=== PATIENT | male | born 1985 ===

== ENCOUNTER 2022-09-18 15:05 | Emergency (ER) | payer SELFPAY ==
[2022-09-18 15:13] VITALS: BP 148/91; PULSE 82; RESP 18; TEMP 36.8; O2SAT 98; BMI 38.0
--- NOTE | 2022-09-18 15:13 | ED.PSYCH ---
HPI - Psych General Chief Complaint: Anxiety <Leonor Marte CNP - Last Filed: 09/18/22 15:16> Stated Complaint: Anxiety <Leonor Marte CNP - Last Filed: 09/18/22 15:16> Time Seen by Provider: 09/18/22 15:56 <Leonor Marte CNP - Last Filed: 09/18/22 15:16> Source: patient <Rema Watts NP - Last Filed: 09/18/22 19:21> Mode of arrival: ambulatory <Rema Watts NP - Last Filed: 09/18/22 19:21> Limitations: no limitations <Rema Watts NP - Last Filed: 09/18/22 19:21> History of Present Illness HPI Narrative: 37-year-old male presents for anxiety, he denies suicidal homicidal ideation. He recently from his significant other, on Monday, states that he has been unable to eat, trouble sleeping, and has some intermittent chest discomfort because of the stress. He is able to function, has been going to work, and has not been participating in any illicit drugs. He does drink responsibly. He is seeking assistance, possibly outpatient therapy. <Rema Watts NP - Last Filed: 09/18/22 19:21> MD complaint: anxiety <Rema Watts NP - Last Filed: 09/18/22 19:21> Onset (ago): week(s) <Rema Watts NP - Last Filed: 09/18/22 19:21> Duration: getting worse <Rema Watts NP - Last Filed: 09/18/22 19:21> History of same: No <Rema Watts NP - Last Filed: 09/18/22 19:21> Relieving factors: none <Rema Watts NP - Last Filed: 09/18/22 19:21> Exacerbating factors: other (Separation) <Rema Watts NP - Last Filed: 09/18/22 19:21> Context: significant life stressor <Rema Watts NP - Last Filed: 09/18/22 19:21> Associated symptoms: denies other symptoms <Rema Watts NP - Last Filed: 09/18/22 19:21> Treatments prior to arrival: none <Rema Watts NP - Last Filed: 09/18/22 19:21> Related Data Home Medications: Previous Rx's Medication Instructions Recorded hydroxyzine HCl 25 mg tablet 25 mg PO Q6-8H PRN anxiety #30 tabs 09/18/22 <Leonor Marte CNP - Last Filed: 09/18/22 15:16> Allergies/Adverse Reactions: Allergies Allergy/AdvReac Type Severity Reaction Status Date / Time No Known Allergies Allergy Unverified 05/07/20 16:16 <Leonor Marte CNP - Last Filed: 09/18/22 15:16> Review of Systems Review of Systems: Constitutional: No Fever, No Chills Cardiovascular: Positive chest pressure, No SOB Respiratory: No Cough, No Dyspnea Gastrointestinal: No Nausea, No Vomiting, No Diarrhea, No abdominal Pain Genitourinary: No Dysuria, No Hematuria Musculoskeletal: No joint pain, No Myalgias, No Joint Swelling Psych: Positive Anxiety/Panic, No Depression <Rema Watts NP - Last Filed: 09/18/22 19:21> Yes all other systems are reviewed and are negative <Rema Watts NP - Last Filed: 09/18/22 19:21> PMFSH Past Medical History Attestation statement: The following information was validated with the patient. <Rema Watts NP - Last Filed: 09/18/22 19:21> Source: old records reviewed <Rema Watts NP - Last Filed: 09/18/22 19:21> Social History Social History: Social History Smoked in Last 30 Days: No Use of substances other than those prescribed or required for medical reasons: No Advance Directives: No Advance Directives Information Provided: No <Leonor Marte CNP - Last Filed: 09/18/22 15:16> Physical Exam Vital Signs: Vital Signs: Last Vital Signs Temp 98.2 F 09/18/22 15:13 Pulse 82 09/18/22 15:13 Resp 18 09/18/22 15:13 BP 148/91 H 09/18/22 15:13 Pulse Ox 98 09/18/22 15:13 O2 Del Method 09/18/22 15:13 BMI result Body Mass Index 38.0 <Leonor Marte CNP - Last Filed: 09/18/22 15:16> Vital Signs: Last Vital Signs Temp 98.2 F 09/18/22 15:13 Pulse 82 09/18/22 15:13 Resp 18 09/18/22 15:13 BP 148/91 H 09/18/22 15:13 Pulse Ox 98 09/18/22 15:13 O2 Del Method 09/18/22 15:13 BMI result Body Mass Index 38.0 <Rema Watts NP - Last Filed: 09/18/22 19:21> Appearance: Alert. Oriented X3. No acute distress. Eyes: Pupils equal, round and reactive to light. Neck: Normal inspection. Neck supple. CVS: Normal heart rate and rhythm. Pulses normal. Respiratory: No respiratory distress. Breath sounds normal. Skin: Skin warm and dry. Normal skin color. Normal skin turgor. Extremities: Gait well-balanced well coordinated. Neuro: No motor deficit. No sensory deficit. Cranial nerves 2-12 intact. <Rema Watts NP - Last Filed: 09/18/22 19:21> Course Course Course Narrative: This is an RME: Additional HPI, ROS, PE not included below will be deferred to primary provider. Marly a 37 year old male presenting ot the ED complainig of worsening Depression and anxiety over the past week, has had history of prior. Had a therapist in the past, none for about 5-6 years. Denies any SI/HI. Denies any prior SI attempts. Has not spoke to PCP about this. reports he as been trying to break out if it but can't, requesting assistance with getting a therapist. Marly placed back in waiting room with mother and father. Will require referral to CARE team <Leonor Marte CNP - Last Filed: 09/18/22 15:16> This is an RME: Additional HPI, ROS, PE not included below will be deferred to primary provider. Marly a 37 year old male presenting ot the ED complainig of worsening Depression and anxiety over the past week, has had history of prior. Had a therapist in the past, none for about 5-6 years. Denies any SI/HI. Denies any prior SI attempts. Has not spoke to PCP about this. reports he as been trying to break out if it but can't, requesting assistance with getting a therapist. Marly placed back in waiting room with mother and father. Will require referral to CARE team 37-year-old male presents for situational anxiety, recently went through a separation and is experiencing, sleeplessness, and poor p.o. intake. Patient is able to function, is able to go to work. He does not report excessive alcohol or marijuana use. Patient is speaking in complete sentences, appears well, 18 afebrile, nontoxic, vital signs are within normal limits. Considering the patient's concerned about some chest pressure with his anxiety, will order EKG, I do not feel that labs are appropriate at this time, if EKG indicates ski Barbara will continue with the ACS workup. This is most likely anxiety due to significant life stressor. I did contact the care team, plan is for care team consult. Patient denies suicidal and homicidal ideation. At this time patient is voluntary. 18:00 care team presented patient with referrals outpatient therapy. Patient verbalized understanding of and agrees to plan of care discharge home. Verbalized understanding of signs and symptoms indicating need for emergent intervention. <Rema Watts NP - Last Filed: 09/18/22 19:21> Medical Decision Making Differential Diagnosis Differential Diagnoses: The differential diagnosis associated with the presentation includes <Rema Watts NP - Last Filed: 09/18/22 19:21> Anxiety, depression <Rema Watts NP - Last Filed: 09/18/22 19:21> Consult Healthcare Provider Management of the patient was discussed with: Behavioral Health Provider <Rema Watts NP - Last Filed: 09/18/22 19:21> Independent Interpretation I performed an independent interpretation of an: EKG <Rema Watts NP - Last Filed: 09/18/22 19:21> External Record Review No prior records for this patient at this facility <Rema Watts NP - Last Filed: 09/18/22 19:21> Prescription Management I considered prescription management with: Other (anxiolytic ) <Rema Watts NP - Last Filed: 09/18/22 19:21> Discharge Plan Discharge Clinical Impression: Acute anxiety <Leonor Marte CNP - Last Filed: 09/18/22 15:16> Patient Disposition: Home, Self-Care <Leonor Marte CNP - Last Filed: 09/18/22 15:16> Instructions: Anxiety (ED) <Leonor Marte CNP - Last Filed: 09/18/22 15:16> Additional Instructions: Please follow-up with outpatient referrals. Please take hydroxyzine 25 to 50 mg every 6-8 hours as needed. Please start with 25 mg, if 25 mg does not work then repeat in 1 hour. Thank you for choosing this emergency department for evaluation. Please follow-up with primary care physician as needed. Return to the emergency department for any new, concerning, or worsening symptoms. <Leonor Marte CNP - Last Filed: 09/18/22 15:16> Prescriptions: New hydroxyzine HCl 25 mg tablet 25 mg PO Q6-8H PRN (Reason: anxiety) Qty: 30 0RF <Leonor Marte CNP - Last Filed: 09/18/22 15:16> Interventions: ED Discharge Assessment Last Done: 09/18/22 18:39 <Leonor Marte CNP - Last Filed: 09/18/22 15:16> Discharge Date/Time: 09/18/22 18:42 <Leonor Marte CNP - Last Filed: 09/18/22 15:16>
--- NOTE | 2022-09-18 15:58 | PC.NURSE ---
37 y/o M pw anxiety/depression x1 week, has no hx of this. pt was seen by counselor 2 days ago. denies SI/HI. states he has a strong support system at home. no other complaints, VSS, awaiting provider
--- NOTE | 2022-09-18 16:12 | ECG_ITS ---
Test Reason : general medical Blood Pressure : / mmHG Vent. Rate : 067 BPM Atrial Rate : 067 BPM P-R Int : 146 ms QRS Dur : 092 ms QT Int : 382 ms P-R-T Axes : 052 052 050 degrees QTc Int : 403 ms Normal sinus rhythm with sinus arrhythmia Normal ECG No previous ECGs available Referred By: Rema Watts Electronically Signed By:Moshe Merritt
--- NOTE | 2022-09-18 18:01 | MHC.CARE ---
CARE team met with pt to discuss plan of care once pt was medically cleared. [place] [facility] [place] of [place]. He reports feelings of depression and disturbed sleep. He broke up with his girlfriend on Monday and has had a difficult time adjusting. Pt is currently working FT. He has been using exercise as a coping skill but feels he needs additional supports at this time. He denies any SI/HI. He has no prior hx of hospitalization. Pt?s mother in room at the time of interview and reports no safety concerns. Pt was given written material for outpatient providers. Pt stated he will follow up with providers tomorrow. He was previously attending [facility] and found OP therapy helpful
== END 2022-09-18 18:42 | disposition home or self-care (01) ==
PROVIDERS: Emergency Provider Emergency Medicine
DX: F41.1 Generalized anxiety disorder (principal); Z63.79 Other stressful life events affecting family and household; Z79.899 Other long term (current) drug therapy
CPT/HCPCS: 93005; 99284

== ENCOUNTER 2024-01-09 11:48 | Emergency (ER) | payer SELFPAY ==
--- NOTE | 2024-01-09 12:11 | PC.NURSE ---
No answer when called at 12:11pm
[2024-01-09 12:33] VITALS: BP 145/89; PULSE 90; RESP 16; TEMP 36.8; O2SAT 100; BMI 31.5
--- NOTE | 2024-01-09 12:34 | ED.GENADULT ---
HPI - General Adult General Chief complaint: Skin/Abscess/Foreign Body Stated complaint: Cyst Time Seen by Provider: 01/09/24 13:53 Source: patient Mode of arrival: ambulatory Limitations: no limitations History of Present Illness ED Provider: Cole Reynolds PA-C HPI narrative: 38-year-old male with no significant medical history presents to the ER for evaluation of a cyst in the suprapubic area with purulent drainage for the last 2-3 days after shaving the area. he has been picking at it and it started having drainage of pus yesterday. Noticed the area started to get more firm and larger. He denies any history of diabetes, no fever, no chills, no other symptoms. No history of similar abscesses in the past. MD complaint: Draining suprapubic abscess Onset (ago): day(s) (3) Location: pelvis Severity: moderate Quality: aching Pain Consistency: constant Relieving factors: rest Exacerbating factors: other ( palpation) Associated symptoms: denies other symptoms Treatments prior to arrival: none Related Data Previous Rx's ?Medication ?Instructions ?Recorded hydroxyzine HCl 25 mg tablet 25 mg PO Q6-8H PRN anxiety #30 tabs 09/18/22 amoxicillin 875 mg-potassium 1 tab PO BID #14 tabs 01/09/24 clavulanate 125 mg tablet Allergies Allergy/AdvReac Type Severity Reaction Status Date / Time No Known Allergies Allergy Verified 01/09/24 12:35 Review of Systems Review of Systems: Yes all other systems are reviewed and are negative PMFSH Social History Social History Advance Directives: No Advance Directives Information Provided: No Physical Exam ED Vital Signs: Vital Signs - 24 hr 01/09/24 12:33 01/09/24 14:18 Temperature 98.3 F 98.3 F Pulse Rate 90 90 Respiratory Rate 16 16 Blood Pressure 145/89 H 145/89 H Pulse Oximetry 100 100 Oxygen Delivery Method Room Air Room Air BMI result Body Mass Index 31.5 Appearance: Alert. Oriented X3. No acute distress. HEENT: normal inspection CVS: Normal heart rate and rhythm. Pulses normal. Respiratory: No respiratory distress. Skin: Skin warm and dry. Normal skin color. Normal skin turgor. suprapubic area with a approximately 4 cm area of induration with a central area of fluctuance with purulent drainage. The area is tender, slightly warm, minimal erythema. Normal inspection of the external genitalia Extremities: normal inspection x4 Neuro: Oriented X 3. No motor deficit. No sensory deficit. Course Course Course Narrative: This is a Rapid Medical Examination (RME) performed by Arsenio Morel PA-C in triage. Full HPI, ROS, assessment and treatment plan per primary provider in the Main ED. 38 yo male here for eval of cyst to suprapubic region x3 days. admits cyst has been draining blood/ purulent fluid. denies having symptoms before. denies fever, chills, N/V. not diabetic. well apearing. exam limited in triage. Plan: basic labs Procedures Abscess I/D Site: abdomen ( suprapubic area) Technique: other ( sterile cotton swab ) Sent for culture/gram staining?: No Irrigation: Yes Packing used?: none Medical Decision Making Medical Decision Making [facility] Narrative: 38-year-old male presents the ER for evaluation of a suprapubic cyst/abscess with purulent drainage for the last 2-3 days. It is in the setting of recently shaving the area. On examination today purulent material was able to be manually expressed. The abscess was then irrigated with normal saline and a dressing was applied. Mild surrounding cellulitic changes so will start on oral antibiotics. We discussed management with topical warm compresses, avoiding shaving, and monitoring for worsening infection. Stable for discharge home. Differential Diagnosis Differential Diagnoses: The differential diagnosis associated with the presentation includes abscess, folliculitis, cellulitis, no evidence of Galo gangrene Lab Data [facility] Lab Attestation statement: I reviewed the patient's lab results. No leukocytosis 01/09/24 13:00 01/09/24 13:00 Labs: Lab Results 01/09/24 Range/Units 13:00 WBC 5.1 (4.8-10.8) X10*3/uL RBC 5.20 (4.60-5.80) X10*6/uL Hgb 15.8 (14.0-18.0) g/dl Hct 44.3 (42.0-52.0) % MCV 85.2 (80.0-98.0) fL MCH 30.4 (27.0-33.0) pg MCHC 35.7 (31.0-36.0) g/dl RDW 12.0 (11.0-16.0) % Plt Count 249 (160-400) X10*3/uL MPV 9.6 (9.4-12.4) fL Immature Gran % (Auto) 0.4 (0.0-0.4) % Neut % (Auto) 72.6 (45-73) % Lymph % (Auto) 18.4 L (20-40) % [place] % (Auto) 7.4 (2-11) % Eos % (Auto) 0.8 (0-4) % Baso % (Auto) 0.4 (0-2) % Lymph # (Auto) 0.9 L (1.2-4.9) X10*3/uL [place] # (Auto) 0.4 (0.1-1.2) X10*3/uL Eos # (Auto) 0.0 (0.0-0.4) X10*3/uL Baso # (Auto) 0.0 (0.0-0.2) X10*3/uL Abs Immat Gran (auto) 0.02 (0.00-0.03) X10*3/uL Absolute Neuts (auto) 3.7 (2.0-8.3) x10*3/uL Absolute Nucleated RBC 0.000 (0.0-0.012) X10*3/uL Nucleated RBC % (auto) 0.0 (0.0-0.2) /100WBC Sodium 143 (135-145) mmol/L Potassium 3.9 (3.3-5.1) mmol/L Chloride 105 (96-108) mmol/L Carbon Dioxide 27 (22-29) mmol/L Anion Gap 15 (12-20) BUN 13 (9-16) mg/dL Creatinine 0.83 (0.5-1.4) mg/dL Estim Creat Clear Calc 135.6 Estimated GFR > 60 Random Glucose 147 H (60-115) mg/dL Calcium 9.6 (8.4-10.2) mg/dL Magnesium 2.1 (1.6-2.6) mg/dL Total Bilirubin 0.4 (0.0-1.0) mg/dL AST 16 (5-37) U/L ALT 19 (0-40) U/L Alkaline Phosphatase 57 (39-117) U/L Total Protein 7.3 (6.5-8.0) g/dL Albumin 4.4 (3.5-5.0) g/dL Prescription Management I considered prescription management with: Pain Medication and Antibiotic Critical Care Time Critical Care Time Critical Care Time: No Discharge Plan Discharge Clinical Impression: Abscess of skin or subcutaneous tissue Patient Disposition: Home, Self-Care Instructions: Abscess Incision and Drainage (DC) Additional Instructions: Use warm compresses to the area several times per day. Avoid shaving the area. Take the prescribed antibiotics as directed, do not miss any doses complete the entire course. If you develop new or worsening symptoms call 911 or come back to the ER for further evaluation. Prescriptions: New amoxicillin-pot clavulanate 875-125 mg tablet 1 tab PO BID Qty: 14 0RF No Action hydroxyzine HCl 25 mg tablet 25 mg PO Q6-8H PRN (Reason: anxiety) Qty: 30 0RF Interventions: ED Discharge Assessment Last Done: 01/09/24 14:18 Discharge Date/Time: 01/09/24 14:21 Print Language: Egyptian
[2024-01-09 13:03] LABS: MANUAL DIFF FLAG NO
[2024-01-09 13:05] LABS: Basophils Percent Auto 0.4 % (0-2); Eosinophils Percent Auto 0.8 % (0-4); Hematocrit 44.3 % (42.0-52.0); Hemoglobin 15.8 g/dl (14.0-18.0); Imm Gran Abs Auto 0.02 X10*3/uL (0.00-0.03); Imm Gran Pct Auto 0.4 % (0.0-0.4); Lymphocytes Absolute Auto 0.9 X10*3/uL (1.2-4.9); Lymphocytes Percent Auto 18.4 % (20-40); Mean Corpuscular HGB Conc 35.7 g/dl (31.0-36.0); Mean Corpuscular Hemoglobin 30.4 pg (27.0-33.0); Mean Corpuscular Volume 85.2 fL (80.0-98.0); Mean Platelet Volume 9.6 fL (9.4-12.4); Monocytes Absolute Auto 0.4 X10*3/uL (0.1-1.2); Monocytes Percent Auto 7.4 % (2-11); Neutrophils Absolute Auto 3.7 x10*3/uL (2.0-8.3); Neutrophils Percent Auto 72.6 % (45-73); Platelet Count 249 X10*3/uL (160-400); White Blood Count 5.1 X10*3/uL (4.8-10.8)
[2024-01-09 13:37] LABS: Alanine Aminotransferase 19 U/L (0-40); Albumin Level 4.4 g/dL (3.5-5.0); Alkaline Phosphatase 57 U/L (39-117); Anion Gap 15 (12-20); Aspartate Amino Transferase 16 U/L (5-37); Bilirubin Total 0.4 mg/dL (0.0-1.0); Blood Urea Nitrogen 13 mg/dL (9-16); Calcium 9.6 mg/dL (8.4-10.2); Carbon Dioxide 27 mmol/L (22-29); Chloride 105 mmol/L (96-108); Creatinine Clr Calc Pharmacy 135.6; Estimated Glomerular Filt Rate > 60; Glucose Random 147 mg/dL (60-115); Magnesium 2.1 mg/dL (1.6-2.6); Potassium 3.9 mmol/L (3.3-5.1); Sodium 143 mmol/L (135-145); Total Protein 7.3 g/dL (6.5-8.0)
[2024-01-09 14:18] VITALS: BP 145/89; PULSE 90; RESP 16; TEMP 36.8; O2SAT 100
== END 2024-01-09 14:21 | disposition home or self-care (01) ==
LOC: HO.ED 14:16
PROVIDERS: Physician Assistant Medical; Emergency Provider Emergency Medicine; PCP Nurse Practitioner Family
DX: L02.211 Cutaneous abscess of abdominal wall (principal); L72.9 Follicular cyst of the skin and subcutaneous tissue, unspecified
CPT/HCPCS: 10060; 36415; 80053; 83735; 85025; 99282; 99283